=== PATIENT | male | born 1970 | race Caucasian/White ===

== ENCOUNTER 2019-11-16 00:47 | Emergency (ER) | payer BC, OTHER ==
[~2019-11-16] VITALS: Ht 157.5 cm; Wt 60.4 kg
[2019-11-16 00:50] VITALS: BP 133/85
== END 2019-11-16 01:03 | disposition home or self-care (01) ==
LOC: ED 00:55
DX: Z02.9 Encounter for administrative examinations, unspecified (principal)

== ENCOUNTER 2020-12-31 13:05 | Inpatient (IN) | payer OTHER ==
[~2020-12-31] VITALS: Ht 162.6 cm; Wt 42.0 kg
[2020-12-31] MEDS ORDERED: SODIUM CHLORIDE FLUSH 10ML SYR IVF ONE (13:30)
[2020-12-31] MEDS ORDERED: SODIUM CHLORIDE 0.9% 1,000 ML IV ONE (13:30)
--- NOTE | 2020-12-31 13:40 | NUR ---
THIS IS A 50YO M BIB EMS [facility] TX FOR N/V/ABD PAIN, SOB X3 DAYS. DX W/ SMA SYNDROME, SEPSIS. PT REPORTS CHRONIC ETOH, LAST DRINK LAST NIGHT. PT TREMULOUS. VSS, NADN. PIVX2. LABEL REWINDER MEDS: MORPHINE, ZOFRAN, VANCO, AZITHROMYCIN, ROCEPHIN, NS 1300ML. LABEL REWINDER LABS: DDIMER 1.11, LACTIC 10 THEN 2.5, K 4.9, CR 1.6, BILI 1.2, TROP 126.43 NG/L (REF 0-53) VBG PH 7.16, PCO2 20.3, BASE EXCESS -21.5, HCO3 7.2 COVID NEGATIVE
[2020-12-31 13:42] LABS: BASOPHILS % (AUTO) 1 % (0-1); EOSINOPHILS % (AUTO) 0 % (1-7); LYMPHOCYTES % (AUTO) 6 % (22-44); MEAN CORPUSCULAR HEMOGLOBIN 37.8 pg (27.5-34.5); MEAN PLATELET VOLUME 8.3 fL (7.4-10.4); MONOCYTES % (AUTO) 11 % (2-9); NEUTROPHILS % (AUTO) 82 % (42-75); PLATELET COUNT 109 x10^3/uL (130-400); RED BLOOD COUNT 3.27 x10^6/uL (4.38-5.82); RED CELL DISTRIBUTION WIDTH 13.9 % (9.4-14.8)
[2020-12-31 13:48] LABS: PROTHROMBIN TIME 10.7 Seconds (9.6-11.5)
[2020-12-31 13:51] LABS: ALBUMIN 3.8 g/dL (3.4-5.0); ANION GAP 13 mmol/L (5-15); CHLORIDE 105 mmol/L (98-107)
[2020-12-31 13:55] LABS: ALANINE AMINOTRANSFERASE 105 U/L (12-78); ALKALINE PHOSPHATASE 62 U/L (45-117); BILIRUBIN,TOTAL 0.9 mg/dL (0.2-1.0); CREATININE 1.19 mg/dL (0.7-1.3); TOTAL PROTEIN 7.6 g/dL (6.4-8.2)
[2020-12-31] MEDS ORDERED: LORazepam 2 MG/ML, 1ML IV ONE (14:00)
[2020-12-31] MEDS ORDERED: LORazepam 2 MG/ML, 1ML ONE (14:10)
[2020-12-31 14:22] LABS: ACETONE, SERUM Large (80mg/dL) (Negative)
[2020-12-31 14:25] LABS: MD MORPH REVIEW ONLY
[2020-12-31 14:28] LABS: ANISOCYTOSIS 2+
[2020-12-31 14:29] LABS: POLYCHROMASIA 1+
[2020-12-31 14:30] LABS: BASOPHILLIC STIPPLING 1+
[2020-12-31] MEDS ORDERED: MAGNESIUM SULFATE 1 GM, THIAMINE 100 MG, FOLIC ACID 1 MG, MVI ADULT 10 ML in SODIUM CHL... IV ONE (14:30)
[2020-12-31 14:31] LABS: <PLATELET ESTIMATE> DECREASED; <PLT MORPHOLOGY> NORMAL PLT MORPH
--- NOTE | 2020-12-31 15:28 | NUR ---
REPORT GIVEN TO TATY YOUNG. PT READY FOR TRANSPORT AT THIS TIME. RESP EVEN AND UNLABORED, NADN. IVF INFUSING PER EMAR.
[2020-12-31] MEDS ORDERED: FOLIC ACID 5 MG/ML IM ONE (15:30)
[2020-12-31] MEDS ORDERED: ACETAMINOPHEN 325 MG TABLET PO PRN (15:30)
[2020-12-31] MEDS ORDERED: LORazepam 1MG TABLET PO PRN ×4 (15:30)
[2020-12-31] MEDS ORDERED: LACTATED RINGERS 1,000 ML IV SCH (15:30)
[2020-12-31] MEDS ORDERED: OXYcodone IR 5MG TABLET PO PRN (15:30)
[2020-12-31] MEDS ORDERED: POLYETHYLENE GLYCOL 17 GM PACKET PO PRN (15:30)
[2020-12-31] MEDS ORDERED: LORazepam 0.5MG TABLET PO PRN (15:30)
[2020-12-31] MEDS ORDERED: LORazepam 2 MG/ML, 1ML IV PRN ×5 (15:30)
[2020-12-31] MEDS ORDERED: ONDANSETRON 2MG/ML, 2ML IVPush PRN (15:30)
[2020-12-31] MEDS ORDERED: KETOROLAC 30 MG/1 ML IV PRN (15:30)
--- NOTE | 2020-12-31 15:38 | NUR ---
PATIENT TRANSFERRED IN STABLE CONDITION TO MEDICAL VIA ROUTLOOK WITH TUBE SKIVER, ALL PATIENT BELONGINGS TAKEN TO FLOOR WITH PATIENT.
[2020-12-31] MEDS ORDERED: THIAMINE 200 MG in DEXTROSE 5% 50 ML IVPB ONE (16:00)
[2020-12-31 16:03] VITALS: BP 148/94
[2020-12-31] MEDS: ENOXAPARIN 40 MG/0.4 ML SQ SCH (16:29)
[2020-12-31 18:37] VITALS: BP 117/75
[2021-01-01] MEDS: LACTATED RINGERS 1,000 ML IV SCH ×3 (00:35→11:01)
[2021-01-01 01:55] VITALS: BP 117/73
[2021-01-01 05:50] LABS: BASOPHILS % (AUTO) 0 % (0-1); EOSINOPHILS % (AUTO) 1 % (1-7); LYMPHOCYTES % (AUTO) 15 % (22-44); MEAN CORPUSCULAR HEMOGLOBIN 38.4 pg (27.5-34.5); MEAN PLATELET VOLUME 8.2 fL (7.4-10.4); MONOCYTES % (AUTO) 11 % (2-9); NEUTROPHILS % (AUTO) 73 % (42-75); PLATELET COUNT 79 x10^3/uL (130-400); RED BLOOD COUNT 2.84 x10^6/uL (4.38-5.82)
[2021-01-01 05:51] LABS: CHLORIDE 109 mmol/L (98-107)
[2021-01-01 06:00] LABS: ANION GAP 8 mmol/L (5-15); CALCIUM 7.7 mg/dL (8.5-10.1); CREATININE 0.73 mg/dL (0.7-1.3)
[2021-01-01 06:07] LABS: MD NO
[2021-01-01 08:04] VITALS: BP 136/82
[2021-01-01] MEDS ORDERED: SENNA/DOCUSATE TABLET PO SCH (09:00)
[2021-01-01] MEDS ORDERED: MULTIVITAMINS/MINERALS TABLET PO SCH (09:00)
[2021-01-01 13:36] VITALS: BP 143/80
[2021-01-01] MEDS: ENOXAPARIN 40 MG/0.4 ML SQ SCH (15:02)
[2021-01-01] MEDS ORDERED: POTASSIUM PHOSPHATE 44 MEQ in SODIUM CHLORIDE 0.9% 500 ML IV ONE (16:00)
[2021-01-01 21:58] VITALS: BP 137/85
[2021-01-02] MEDS: LACTATED RINGERS 1,000 ML IV SCH ×2 (00:15→05:38)
[2021-01-02 02:57] VITALS: BP 110/72
[2021-01-02 03:10] VITALS: BP 143/85
== END 2021-01-02 08:20 | disposition left against medical advice (07) | DRG 438 ==
LOC: SUATTDRO 14:21 → ED 14:45 → 4NE 15:10
PROVIDERS: ADMIT Family Medicine; ATTEND Family Medicine
DX: K85.20 Alcohol induced acute pancreatitis without necrosis or infection (principal); E43 Unspecified severe protein-calorie malnutrition; E87.2 Acidosis; F10.239 Alcohol dependence with withdrawal, unspecified; R65.10 Systemic inflammatory response syndrome (SIRS) of non-infectious origin without acute organ dysfunction; Z68.1 Body mass index [BMI] 19.9 or less, adult; K70.10 Alcoholic hepatitis without ascites; E86.0 Dehydration; E86.1 Hypovolemia; J43.9 Emphysema, unspecified; Z88.0 Allergy status to penicillin; Z82.49 Family history of ischemic heart disease and other diseases of the circulatory system; Z80.8 Family history of malignant neoplasm of other organs or systems
CPT/HCPCS: 36415; 76705; 80048; 80053; 80320; 82010; 82800; 83605; 83690; 83735; 84100; 85025; 85610; 93005; 96374; 99285; G0378; J1650; J3411; J3475; G0480; J2060; J7030; J7040; J7120